=== PATIENT | female | born 1960 | race African-American/Black ===

== ENCOUNTER 2017-12-11 20:15 | Emergency (ER) | payer MEDICAID, OTHER ==
[~2017-12-11] VITALS: Ht 165.1 cm; Wt 91.0 kg
[2017-12-12 07:50] LABS: BASOPHILS % 0.8 % (0.0-2.0); EOSINOPHILS % 3.4 % (0.0-5.0); HEMATOCRIT. 39.9 % (36.0-48.0); HEMOGLOBIN. 13.5 g/dL (12.0-16.0); LYMPHOCYTES % 28.8 % (20.0-50.0); MEAN CORPUSCULAR HEMOGLOBIN 31.7 pg (28.0-32.0); MEAN CORPUSCULAR VOLUME 93.5 fL (81.0-99.0); MEAN PLATELET VOLUME 11.5 fl (7.4-10.4); MONOCYTES % 13.8 % (2.0-8.0); NEUTROPHILS % 53.2 % (40.0-76.0); PLATELET 127 x1000/uL (130-400); RED BLOOD CELL COUNT 4.27 mill/uL (4.2-5.4); RED CELL DISTRIBUTION WIDTH 13.8 % (11.6-14.6)
[2017-12-12 07:53] LABS: CHLORIDE 113 mEq/L (98-107)
[2017-12-12 08:01] LABS: ETHANOL BLOOD < 10 mg/dL
[2017-12-12 08:28] LABS: CLARITY URINE CLEAR (CLEAR); COLOR URINE YELLOW (YELLOW); KETONES URINE NEGATIVE (NEGATIVE); LEUKOCYTE ESTERASE URINE NEGATIVE (NEGATIVE); NITRITE URINE NEGATIVE (NEGATIVE); OCCULT BLOOD URINE NEGATIVE (NEGATIVE); PH URINE 7.5 (4.5-8.0); PROTEIN URINE NEGATIVE (NEGATIVE); SPECIFIC GRAVITY URINE 1.013 (1.005-1.030)
[2017-12-12 09:46] LABS: *AMPHETAMINES SCREEN URINE NEGATIVE (NEGATIVE); *COCAINE SCREEN URINE NEGATIVE (NEGATIVE)
[2017-12-12 09:47] LABS: *BENZODIAZEPINES SCREEN URINE NEGATIVE (NEGATIVE)
[2017-12-12 09:49] LABS: *BARBITURATES SCREEN URINE NEGATIVE (NEGATIVE)
[2017-12-12 09:50] LABS: CANNABINOID URINE SCREEN NEGATIVE (NEGATIVE); METHADONE URINE SCREEN NEGATIVE (NEGATIVE)
[2017-12-12 09:52] LABS: OPIATES URINE SCREEN NEGATIVE (NEGATIVE)
[2017-12-12 09:56] LABS: PHENCYCLIDINE URINE SCREEN NEGATIVE (NEGATIVE)
[2017-12-13 14:11] VITALS: BP 116/81
== END 2017-12-13 14:41 | disposition home or self-care (01) ==
LOC: ER 20:15
DX: M54.5 Low back pain (principal); I10 Essential (primary) hypertension; R56.9 Unspecified convulsions; Z79.899 Other long term (current) drug therapy; W18.39XA Other fall on same level, initial encounter; Y93.89 Activity, other specified; Y92.89 Other specified places as the place of occurrence of the external cause; Y99.8 Other external cause status
CPT/HCPCS: 36415; 72100; 80053; 80305; 80307; 80329; 81003; 82962; 85025; 99285; G0482

== ENCOUNTER 2018-03-18 01:59 | Emergency (ER) | payer MEDICAID ==
[~2018-03-18] VITALS: Ht 165.1 cm; Wt 100.4 kg
[2018-03-18] MEDS ORDERED: KETOROLAC 60MG/2ML VIAL IM ONE (06:15)
[2018-03-18] MEDS ORDERED: LEVETIRACETAM 500MG TABLET PO ONE (06:45)
[2018-03-18 08:30] VITALS: BP 161/70
== END 2018-03-18 08:33 | disposition home or self-care (01) ==
LOC: ER 01:59
DX: M25.551 Pain in right hip (principal); I10 Essential (primary) hypertension; G40.909 Epilepsy, unspecified, not intractable, without status epilepticus
CPT/HCPCS: 96372; 99283; J1885